=== PATIENT | male | born 1995 | race Two or more races ===

== ENCOUNTER → 2024-07-23 | Outpatient (CLI) | payer SELFPAY ==
[2024-07-23 16:12] LABS: % Variance 8 %; % Variance Motility 8 %; Count Side 1 22; Count Side 2 24; Motl CLS 1 60; Motl CLS 2 65; Room Temperature 24 (20-27C (Area)); Sperm Count 23 Million (20-50); Sperm Motility 62 % (>=50)
== END | disposition home or self-care (01) ==
LOC: COPL 15:14
PROVIDERS: PCP Family Medicine; Referring Provider Physician Assistant; Visit Provider Physician Assistant
DX: Z31.41 Encounter for fertility testing (principal)
CPT/HCPCS: 89310